=== PATIENT | male | born 1995 | race Caucasian/White ===

== ENCOUNTER 2021-12-11 17:54 | Emergency (ER) | payer OTHER ==
[~2021-12-11] VITALS: Ht 182.9 cm; Wt 94.0 kg
[2021-12-11 18:11] VITALS: BP 147/86
--- NOTE | 2021-12-11 18:48 | NUR ---
PT TAKEN TO XR VIA [facility] FROM [facility]
[2021-12-11] MEDS ORDERED: CYCL-711 PO (20:11)
[2021-12-11] MEDS ORDERED: IBUP-2218 PO (20:12)
[2021-12-11 20:51] VITALS: BP 133/75
--- NOTE | 2021-12-11 20:51 | NUR ---
Patient discharged with v/s stable. Written and verbal after care instructions given and explained. Patient alert, oriented and verbalized understanding of instructions. Ambulatory with steady gait. All questions addressed prior to discharge. ID band removed. Patient advised to follow up with PMD. Rx of Flexeril and Ibuprofen given. Patient educated on indication of medication including possible reaction and side effects. Opportunity to ask questions provided and answered.
== END 2021-12-11 20:51 | disposition home or self-care (01) ==
LOC: MED 17:54
DX: S39.91XA Unspecified injury of abdomen, initial encounter (principal); M54.50 Low back pain, unspecified; Z91.81 History of falling; W18.30XA Fall on same level, unspecified, initial encounter; Y93.89 Activity, other specified; Y92.89 Other specified places as the place of occurrence of the external cause; Y99.8 Other external cause status
CPT/HCPCS: 72100; 74022; 99284

== ENCOUNTER 2021-12-12 02:37 | Emergency (ER) | payer OTHER ==
[~2021-12-12] VITALS: Ht 182.9 cm; Wt 94.0 kg
[~2021-12-12 02:37] MED LIST: CYCL-711 PO; IBUP-2218 PO
[2021-12-12 02:40] VITALS: BP 167/97
--- NOTE | 2021-12-12 02:49 | NUR ---
Patient ambulated to bed 8.
--- NOTE | 2021-12-12 02:51 | NUR ---
Dr. Serna examining patient.
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
--- NOTE | 2021-12-12 03:04 | NUR ---
RORY AMBULATED TO THE RR
--- NOTE | 2021-12-12 03:18 | NUR ---
URINE COLLECTED AND WALKED TO LAB.
--- NOTE | 2021-12-12 03:18 | NUR ---
PATIENT RETURNED FROM CT
[2021-12-12 03:21] LABS: APPEARANCE,URINE CLEAR (CLEAR); BILIRUBIN,URINE NEGATIVE (NEGATIVE); BLOOD, URINE NEGATIVE (NEGATIVE); COLOR,URINE YELLOW (YELLOW); LEUKOCYTE ESTERASE ,URINE NEGATIVE (NEGATIVE); NITRITE, URINE NEGATIVE (NEGATIVE); UGLUCOSE NEGATIVE (NEGATIVE)
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
[2021-12-12 03:58] VITALS: BP 158/87
--- NOTE | 2021-12-12 03:58 | NUR ---
Patient discharged with v/s stable. Written and verbal after care instructions given and explained. Patient verbalized understanding. Ambulatory with steady gait. All questions addressed prior to discharge. Advised to follow up with PMD.
--- NOTE | 2021-12-12 03:59 | NUR ---
Chart checked and completed. The patient's care was reviewed and supervised by Viri España RN.
== END 2021-12-12 03:58 | disposition home or self-care (01) ==
LOC: MED 02:37
DX: N52.9 Male erectile dysfunction, unspecified (principal); Z79.899 Other long term (current) drug therapy
CPT/HCPCS: 81003; 87491; 99284

== ENCOUNTER 2022-06-08 23:33 | Emergency (ER) | payer OTHER ==
[~2022-06-08] VITALS: Ht 182.9 cm; Wt 90.7 kg
[2022-06-08 23:40] VITALS: BP 111/57
--- NOTE | 2022-06-08 23:40 | NUR ---
TO BED AMBULATORY
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
[2022-06-09] MEDS ORDERED: LIDOCAINE 1% 500 MG/ 50 ML VIAL INJ ONE (00:10)
[2022-06-09] MEDS ORDERED: LIDOCAINE MPF 1% 5 ML ONE ×2 (00:10→01:09)
--- NOTE | 2022-06-09 00:24 | NUR ---
Dr. Carter examining patient.
[2022-06-09] MEDS ORDERED: ceFAZolin 1,000 MG VIAL IM ONE (00:50)
[2022-06-09] MEDS ORDERED: NAPR-54 PO (01:19)
[2022-06-09] MEDS ORDERED: CEPH-588 PO (01:19)
--- NOTE | 2022-06-09 01:34 | NUR ---
PT PROVIDED WITH DISCHARGE INFORMATION AND MEDICATION ADMINISITRATION BY DR. HO. RX OF KEFLEX AND NAPROSYN GIVEN.
== END 2022-06-09 01:34 | disposition home or self-care (01) ==
LOC: MED 23:33
DX: S61.411A Laceration without foreign body of right hand, initial encounter (principal); Z79.899 Other long term (current) drug therapy; V89.2XXA Person injured in unspecified motor-vehicle accident, traffic, initial encounter; Y93.89 Activity, other specified; Y92.89 Other specified places as the place of occurrence of the external cause; Y99.8 Other external cause status
CPT/HCPCS: 73140; 90471; 90715; 96372; 99284; J0690; J2001; Q0092